=== PATIENT | female | born 1990 | race Caucasian/White ===

== ENCOUNTER 2018-05-15 12:04 | Emergency (ER) | payer OTHER ==
[~2018-05-15] VITALS: Ht 162.6 cm; Wt 59.0 kg
== END 2018-05-15 16:21 | disposition home or self-care (01) ==
LOC: ER 12:04
DX: S52.611A Displaced fracture of right ulna styloid process, initial encounter for closed fracture (principal); S52.571A Other intraarticular fracture of lower end of right radius, initial encounter for closed fracture; W18.09XA Striking against other object with subsequent fall, initial encounter; Y93.89 Activity, other specified; Y92.488 Other paved roadways as the place of occurrence of the external cause; Y99.8 Other external cause status